=== PATIENT | female | born 1995 | race Caucasian/White ===

== ENCOUNTER 2018-05-23 02:51 | Emergency (ER) | payer OTHER ==
[~2018-05-23 02:51] MED LIST: ACE3 PO; HYDROCODON; LEVO1TAB48 PO; LEVO750T44 PO; MULT-977 PO; SULF-198 PO
[2018-05-23 02:53] VITALS: BP 116/73
--- NOTE | 2018-05-23 03:00 | ER Report ---
History and Physical Time Seen By MD: 02:51 HPI/ROS CHIEF COMPLAINT: Detention clearance HISTORY OF PRESENT ILLNESS: 23 old female brought in by police for half-way clearance. Patient appears grossly alcohol intoxicated. She was found passed out in a safe ride van. She was unable to stay awake in the van. The safe ride people were concerned for her safety and contacted police and EMS. She is brought in for evaluation. REVIEW OF SYSTEMS: Respiratory: No cough, no dyspnea. Cardiovascular: No chest pain, no palpitations. Gastrointestinal: No vomiting, no abdominal pain. Musculoskeletal: No back pain. Allergies: Coded Allergies: No Known Drug Allergies (Verified , 03/16/15) Home Meds Active Scripts Levofloxacin 750 Mg Tab (LEVAQUIN 750 MG TAB) 750 Mg Tablet, 750 MG PO DAILY, #14 TAB One tablet daily Prov:JOSEFA HUFF [employer] 03/16/15 Reported Medications Levonorgestrel-Eth Estradiol (LUTERA) 1 Each Tablet, 1 EACH PO 03/16/15 Sulfamethoxazole/Trimet 800-160 Mg Tab (BACTRIM DS TABLET) 1 Each Tablet, 1 TAB PO Q12H 03/16/15 Acetaminophen/Codeine (TYLENOL #3 (OR EQUIV)) 1 Ea Tab, 1 EA PO, TAB 03/16/15 [Hydrocodon] No Conflict Check 03/16/15 Multivitamins (Multiple Vitamins) 1 Tab Tablet, 1 TAB PO, 0 Refills 10/20/08 Reviewed Nurses Notes: Yes Old Medical Records Reviewed: Yes Constitutional Vital Sign - Last 24 Hours 05/23/18 02:53 Temp 97.3 Pulse 60 Resp 17 B/P (MAP) 116/73 Pulse Ox 97 O2 Delivery Room Air Physical Exam General Appearance: The patient is alert, has no immediate need for airway protection and no current signs of toxicity. Palpation of the head and neck reveal no tenderness or trauma HEENT: Pupils equal and round no injection. TMs normal, oropharynx without redness or exudate, heavy odor of EtOH on breath Respiratory: Chest is non tender, lungs are clear to auscultation. Cardiac: regular rate and rhythm Gastrointestinal: Abdomen is soft and non tender, no masses, bowel sounds normal. Musculoskeletal: Neck: Neck is supple and non tender. Extremities have full range of motion and are non tender. No evidence of trauma Skin: No rashes or lesions. DIFFERENTIAL DIAGNOSIS: After history and physical exam differential diagnosis was considered for alcohol intoxication, half-way clearance, polysubstance abuse Medical Decision Making ED Course/Re-evaluation ED Course Patient was admitted to an examination room. H&P was done. The differential diagnoses was considered. On clinical examination. Patient has no complaints. Her clinical examination is benign and unremarkable. She appears grossly alcohol intoxicated. She is medically cleared for half-way admission. Decision to Disposition Date: May 23, 2018 Decision to Disposition Time: 02:56 Depart Departure Latest Vital Signs Vital Signs Date Time Temp Pulse Resp B/P (MAP) Pulse Ox O2 Delivery O2 Flow Rate FiO2 05/23/18 02:53 97.3 60 17 116/73 97 Room Air Impression: Primary Impression: Medical clearance for incarceration Additional Impression: Alcohol intoxication Condition: Improved Disposition: HOME OR SELF-CARE Referrals: LENIN SEWELL DO (PCP) Patient Instructions: Alcohol Intoxication (ED) Additional Instructions: Medical cleared for half-way admission Problem Qualifiers Additional Impression: Alcohol intoxication Complication of substance-induced condition: uncomplicated Qualified Codes: F10.920 - Alcohol use, unspecified with intoxication, uncomplicated CB ANDERSON DO May 23, 2018 03:00
== END 2018-05-23 03:05 | disposition home or self-care (01) ==
LOC: ER 02:57
DX: F10.920 Alcohol use, unspecified with intoxication, uncomplicated (principal)
CPT/HCPCS: 99281